=== PATIENT | female | born 1950 | race Caucasian/White ===

== ENCOUNTER 2021-08-16 15:47 | Emergency (ER) | payer OTHER ==
[2021-08-16] MEDS ORDERED: MORPHINE 4 MG/ML SYR ONE ×2 (15:56→16:01)
[2021-08-16] MEDS ORDERED: ONDANSETRON 4 MG/2 ML VIAL ONE (15:56)
[2021-08-16] MEDS ORDERED: FENTANYL CITR 100 MCG/2 ML ONE (16:29)
--- NOTE | 2021-08-16 17:10 | RAD REPORT ---
EXAM DESCRIPTION: RAD - Shoulder Right 2 View - 08/16/2021 4:43 pm CLINICAL HISTORY: Right shoulder pain FINDINGS: Hill-Sachs deformity. Anterior dislocation right humeral head
[2021-08-16] MEDS ORDERED: propofoL 200 MG/20 ML VIAL IV ONE (17:11)
--- NOTE | 2021-08-16 17:11 | RAD REPORT ---
EXAM DESCRIPTION: RAD - Wrist Right 3 View - 08/16/2021 4:43 pm CLINICAL HISTORY: Right wrist pain status post injury FINDINGS: No fracture or dislocation is seen. If the patient continues to have symptoms to suggest a n occult fracture then a followup plain film series in 7 days would be recommended.
--- NOTE | 2021-08-16 17:59 | RAD REPORT ---
EXAM DESCRIPTION: RAD - Shoulder Right 2 View - 08/16/2021 5:49 pm CLINICAL HISTORY: Right shoulder pain FINDINGS: Previously described dislocation has been reduced. Hill-Sachs deformity
--- NOTE | 2021-08-16 18:13 | ER ---
Nurse's Notes [facility] Name: Beatrice Morgan Age: 70 yrs Sex: Female : 1950 Arrival Date: 08/16/2021 Time: 15:48 Bed 3 Private MD: Diagnosis: Recurrent dislocation, right shoulder;Other specified sprain of right wrist Presentation: 08/16 15:50 Chief complaint: Patient states: Fell from standing 40 minutes ago. C/o severe R ss shoulder pain. Care prior to arrival: None. Mechanism of Injury: Fall from standing position. Trauma event details: Injury occurred in the [facility], Injury occurred: August 16, 2021. 15:50 Acuity: KAREEM 2 ss 15:50 Method Of Arrival: Wheelchair ss 16:04 Ebola Screen: Patient denies travel to an Ebola-affected area in the 21 days before ll1 illness onset. Initial Sepsis Screen: Does the patient meet any 2 criteria? No. Patient's initial sepsis screen is negative. Does the patient have a suspected source of infection? No. Patient's initial sepsis screen is negative. Risk Assessment: Do you want to hurt yourself or someone else? Patient reports no desire to harm self or others. Onset of symptoms was August 16, 2021. 16:05 Coronavirus screen: Client denies travel out of the [place] in the last 14 days. ss Trauma Activation: Not Applicable Physician: ED Physician; Name: ; Notified At: ; Arrived At: Physician: General Surgeon; Name: ; Notified At: ; Arrived At: Physician: Radiology; Name: ; Notified At: ; Arrived At: Physician: Respiratory; Name: ; Notified At: ; Arrived At: Physician: Lab; Name: ; Notified At: ; Arrived At: Historical: - Allergies: 16:05 No Known Allergies; ll1 - Immunization history:: Client reports receiving the 2nd dose of the Covid vaccine. - Immunization history: Last tetanus immunization: - up to date. - Social history:: Smoking status: Patient denies any tobacco usage or history of. Screenin:00 Abuse screen: Denies threats or abuse. Nutritional screening: No deficits noted. ll1 Tuberculosis screening: No symptoms or risk factors identified. Fall Risk Fall in past 12 months (25 points). IV access (20 points). Ambulatory Aid- Crutches/Cane/Walker (15 pts). Gait- Total Lopez Fall Scale indicates High Risk Score (45 or more points). Fall prevention measures have been instituted. Side Rails Up X 2 Placed Close to Nursing Station Frequent Obs/Assessments Occuring Family Present and informed to notify staff if the need to leave the bedside As available patient and family educated on Fall Prevention Program and Strategies. Primary Survey: 15:50 NO uncontrolled hemorrhage observed. A: The patient is alert. Airway: patent, No ss supplemental oxygen in use on arrival. Trachea midline. Breathing/Chest: Respiratory pattern: regular, Respiratory effort: spontaneous, unlabored, Breath sounds: clear, bilaterally. Chest inspection: symmetrical rise and fall of the chest. Circulation: Skin color: pink, Skin temperature: warm. Disability Alert. Exposure/Environment: There is no evidence of uncontrolled external bleeding. 18:47 Reassessment Breathing/Chest Respiratory pattern Regular Respiratory effort Spontaneous ll1 Unlabored Breath sounds Clear. Secondary Survey: 15:50 HEENT: Ears: clear Nose: clear Throat: No injury or deformity noted. is clear. ss Musculoskeletal: Circulation, motion, and sensation intact. Range of motion: limited in right shoulder Swelling absent. Assessment: 15:58 General: Appears distressed, uncomfortable, Behavior is cooperative, appropriate for ll1 age, restless. Pain: Complains of pain in R shoulder Aggravated by increased activity. Musculoskeletal: Circulation, motion, and sensation intact. Capillary refill < 3 seconds, Reports pain in R shoulder. Injury Description: s/p fall. r/o dislocation vs. FX. 16:17 Reassessment: No changes from previously documented assessment. Patient and/or family ll1 updated on plan of care and expected duration. Pain level reassessed. Patient is alert, oriented x 3, equal unlabored respirations, skin warm/dry/pink. 17:00 Reassessment: No changes from previously documented assessment. Patient and/or family ll1 updated on plan of care and expected duration. Pain level reassessed. Patient is alert, oriented x 3, equal unlabored respirations, skin warm/dry/pink. 18:00 Reassessment: No changes from previously documented assessment. Patient and/or family ll1 updated on plan of care and expected duration. Pain level reassessed. Patient is alert, oriented x 3, equal unlabored respirations, skin warm/dry/pink. Vital Signs: 16:03 BP 157 / 92; Pulse 69; Resp 26; Pulse Ox 99% ; Pain 10/10; ll1 16:06 Temp 97.0(TE); Weight 88.45 kg; Height 5 ft. 8 in. (172.72 cm); ss 16:16 BP 155 / 86; Pulse 65; Resp 18; Pulse Ox 98% on R/A; ll1 16:33 BP 122 / 103; Pulse 54; Resp 19; Pulse Ox 100% on R/A; ld1 17:36 BP 150 / 82; Pulse 47; Resp 16; Pulse Ox 100% ; ll1 18:08 BP 144 / 71; Pulse 50; Resp 15; Pulse Ox 97% on R/A; ll1 18:47 BP 131 / 61; Pulse 50; Resp 18; Pulse Ox 97% on R/A; ll1 16:06 Body Mass Index 29.65 (88.45 kg, 172.72 cm) ss [place] Coma Score: 15:50 Eye Response: spontaneous(4). Verbal Response: oriented(5). Motor Response: obeys ss commands(6). Total: 15. 16:04 Eye Response: spontaneous(4). Verbal Response: oriented(5). Motor Response: obeys ll1 commands(6). Total: 15. Trauma Score (Adult): 15:50 Eye Response: spontaneous(1); Verbal Response: oriented(1); Motor Response: obeys ss commands(2); Systolic BP: > 89 mm Hg(4); Respiratory Rate: 10 to 29 per min(4); [place] Score: 15; Trauma Score: 12 16:04 Eye Response: spontaneous(1); Verbal Response: oriented(1); Motor Response: obeys ll1 commands(2); Systolic BP: > 89 mm Hg(4); Respiratory Rate: 10 to 29 per min(4); Riky Score: 15; Trauma Score: 12 ED Course: 15:48 Patient arrived in ED. mr 15:52 Dl Morgan MD is Attending Physician. kdr 15:52 Vicky Sanchez RN is Primary Nurse. ll1 15:52 Arm band placed on Patient placed in an exam room, on a stretcher. ll1 15:57 Patient has correct armband on for positive identification. Placed in gown. Bed in low mh5 position. Call light in reach. Side rails up X 1. Warm blanket given. Pulse ox on. NIBP on. 15:58 Inserted saline lock: 22 gauge in left antecubital area, using aseptic technique. Blood ll1 collected. 16:03 Triage completed. ss 16:43 Shoulder Right (2 View) XRAY In Process Unspecified. EDMS 16:44 Wrist Right 3 View XRAY In Process Unspecified. EDMS 17:49 Shoulder Right (2 View) XRAY In Process Unspecified. EDMS 18:09 Oxygen administration via nasal cannula \T\ 2L/min. ll1 18:09 Thermoregulation: warm blanket given to patient. ll1 18:12 Lawrence Apodaca MD is Referral Physician. kdr 18:47 No provider procedures requiring assistance completed. IV discontinued, intact, ll1 bleeding controlled, No redness/swelling at site. Pressure dressing applied. Administered Medications: 16:02 Drug: Zofran (Ondansetron) 4 mg Route: IVP; Site: left antecubital; ll1 16:05 Follow up: Response: No adverse reaction ld1 16:07 Follow up: Response: No adverse reaction ll1 16:03 Drug: morphine 4 mg Route: IVP; Site: left antecubital; ll1 16:05 Follow up: Response: No adverse reaction ld1 16:08 Follow up: Response: No adverse reaction ll1 16:05 Not Given (Duplicate Order): morphine 4 mg IVP once; RASS on ADMIN: Combtv4, Very ld1 Agttd3, Agttd2, Rstlss1, AlertClm0, Drwsy-1, Lt Sdtn-2, Mod Sdtn-3, Dp Sdtn-4, UnArsble-5 16:05 Not Given (Duplicate Order): Zofran (Ondansetron) 4 mg IVP once; over 2 minutes ld1 16:05 Drug: morphine 2 mg {Note: rass 1 .} Route: IVP; Site: left antecubital; ll1 16:15 Drug: morphine 4 mg {Note: rass 1.} Route: IVP; Site: left antecubital; ll1 16:16 Follow up: Response: No adverse reaction ll1 18:44 Follow up: Response: No adverse reaction ll1 16:33 Drug: fentaNYL (PF) 25 mcg Route: IVP; Site: left antecubital; ld1 17:37 Follow up: Response: No adverse reaction ll1 17:15 Drug: Propofol 90 mg Route: IVP; Site: left antecubital; ll1 17:38 Follow up: Response: No adverse reaction ll1 18:28 Drug: fentaNYL (PF) 25 mcg {Note: rass 0.} Route: IVP; Site: left antecubital; ll1 18:44 Follow up: Response: No adverse reaction ll1 Intake: 18:47 PO: 0ml; Total: 0ml. ll1 Output: 18:47 Urine: 0ml; Total: 0ml. 1 Outcome: 18:12 Discharge ordered by . kdr 18:47 Discharged to home via wheelchair. ll1 18:47 Condition: stable 18:47 Discharge instructions given to patient, family, Instructed on discharge instructions, follow up and referral plans. medication usage, Demonstrated understanding of instructions, follow-up care, medications, Prescriptions given X 1. 18:47 Patient's length of stay was not longer than 2 hours. ll1 18:48 Patient left the ED. 1 Signatures: Dispatcher [employer] EDMS Dl Morgan MD MD kdr Rivera, Mary mr Smirch, Shelby, RN RN ss Martinez, Maria [facility] Vicky Sanchez RN RN ll1 Alexia Dover RN RN ld1
--- NOTE | 2021-08-16 18:14 | EDPHYS ---
Physician Documentation [facility] Name: Beatrice Morgan Age: 70 yrs Sex: Female : 1950 Arrival Date: 08/16/2021 Time: 15:48 Bed 3 Private MD: ED Physician Dl Morgan HPI: 08/16 16:04 This 70 yrs old Female presents to ER via Wheelchair with complaints of Fall Injury, kdr Shoulder Injury. 16:04 Details of fall: The patient fell from an upright position, while walking. Onset: The kdr symptoms/episode began/occurred suddenly, just prior to arrival. Associated injuries: The patient sustained Right shoulder. Severity of symptoms: At their worst the symptoms were mild, moderate, just prior to arrival, in the emergency department the symptoms are unchanged. The patient has not experienced similar symptoms in the past. The patient has not recently seen a physician. Patient states she was walking and tripped falling on her right shoulder. Historical: - Allergies: 16:05 No Known Allergies; ll1 - Immunization history:: Client reports receiving the 2nd dose of the Covid vaccine. - Immunization history: Last tetanus immunization: - up to date. - Social history:: Smoking status: Patient denies any tobacco usage or history of. ROS: 16:04 Constitutional: Negative for fever, chills, and weight loss, Eyes: Negative for injury, kdr pain, redness, and discharge, Neck: Negative for injury, pain, and swelling, Cardiovascular: Negative for chest pain, palpitations, and edema, Respiratory: Negative for shortness of breath, cough, wheezing, and pleuritic chest pain, Abdomen/GI: Negative for abdominal pain, nausea, vomiting, diarrhea, and constipation, Back: Negative for injury and pain, : Negative for injury, bleeding, discharge, and swelling, Skin: Negative for injury, rash, and discoloration, Neuro: Negative for headache, weakness, numbness, tingling, and seizure activity. Psych: Negative for depression, anxiety, suicide ideation, homicidal ideation, and hallucinations, Allergy/Immunology: Negative for hives, rash, and allergies, Endocrine: Negative for neck swelling, polydipsia, polyuria, polyphagia, and marked weight changes, Hematologic/Lymphatic: Negative for swollen nodes, abnormal bleeding, and unusual bruising. 16:04 MS/extremity: Positive for injury or acute deformity, decreased range of motion, of the anterior aspect of right shoulder and right axilla. Exam: 16:04 Constitutional: This is a well developed, well nourished patient who is awake, alert, kdr and in no acute distress. Head/Face: Normocephalic, atraumatic. Eyes: Pupils equal round and reactive to light, extra-ocular motions intact. Lids and lashes normal. Conjunctiva and sclera are non-icteric and not injected. Cornea within normal limits. Periorbital areas with no swelling, redness, or edema. Neck: Trachea midline, no thyromegaly or masses palpated, and no cervical lymphadenopathy. Supple, full range of motion without nuchal rigidity, or vertebral point tenderness. No Meningismus. Chest/axilla: Normal chest wall appearance and motion. Nontender with no deformity. No lesions are appreciated. Cardiovascular: Regular rate and rhythm with a normal S1 and S2. No gallops, murmurs, or rubs. Normal PMI, no JVD. No pulse deficits. Respiratory: Lungs have equal breath sounds bilaterally, clear to auscultation and percussion. No rales, rhonchi or wheezes noted. No increased work of breathing, no retractions or nasal flaring. Abdomen/GI: Soft, non-tender, with normal bowel sounds. No distension or tympany. No guarding or rebound. No evidence of tenderness throughout. Back: No spinal tenderness. No costovertebral tenderness. Full range of motion. Skin: Warm, dry with normal turgor. Normal color with no rashes, no lesions, and no evidence of cellulitis. Neuro: Awake and alert, GCS 15, oriented to person, place, time, and situation. Cranial nerves II-XII grossly intact. Motor strength 5/5 in all extremities. Sensory grossly intact. Cerebellar exam normal. Normal gait. Psych: Awake, alert, with orientation to person, place and time. Behavior, mood, and affect are within normal limits. 16:04 Musculoskeletal/extremity: Extremities: grossly normal except: noted in the anterior aspect of right shoulder and posterior aspect of right shoulder: decreased ROM, pain, tenderness, Anterior fullness to right shoulder. Vital Signs: 16:03 BP 157 / 92; Pulse 69; Resp 26; Pulse Ox 99% ; Pain 10/10; ll1 16:06 Temp 97.0(TE); Weight 88.45 kg; Height 5 ft. 8 in. (172.72 cm); ss 16:16 BP 155 / 86; Pulse 65; Resp 18; Pulse Ox 98% on R/A; ll1 16:33 BP 122 / 103; Pulse 54; Resp 19; Pulse Ox 100% on R/A; ld1 17:36 BP 150 / 82; Pulse 47; Resp 16; Pulse Ox 100% ; ll1 18:08 BP 144 / 71; Pulse 50; Resp 15; Pulse Ox 97% on R/A; ll1 18:47 BP 131 / 61; Pulse 50; Resp 18; Pulse Ox 97% on R/A; ll1 16:06 Body Mass Index 29.65 (88.45 kg, 172.72 cm) ss [place] Coma Score: 15:50 Eye Response: spontaneous(4). Verbal Response: oriented(5). Motor Response: obeys ss commands(6). Total: 15. 16:04 Eye Response: spontaneous(4). Verbal Response: oriented(5). Motor Response: obeys ll1 commands(6). Total: 15. Trauma Score (Adult): 15:50 Eye Response: spontaneous(1); Verbal Response: oriented(1); Motor Response: obeys ss commands(2); Systolic BP: > 89 mm Hg(4); Respiratory Rate: 10 to 29 per min(4); Riky Score: 15; Trauma Score: 12 16:04 Eye Response: spontaneous(1); Verbal Response: oriented(1); Motor Response: obeys ll1 commands(2); Systolic BP: > 89 mm Hg(4); Respiratory Rate: 10 to 29 per min(4); Riky Score: 15; Trauma Score: 12 Procedures: 18:14 Reduction: of the right shoulder, using traction, manipulation, Rotation, Immobilized kdr with wrist splint, Patient tolerated well. Post reduction film - Hill-Sachs deformity. MDM: 16:04 Data reviewed: vital signs, nurses notes, lab test result(s), radiologic studies. kdr Counseling: I had a detailed discussion with the patient and/or guardian regarding: the historical points, exam findings, and any diagnostic results supporting the discharge/admit diagnosis, lab results, radiology results. 18:12 Patient medically screened. kdr 18:14 ED course: The patient was much improved with the interventions given. She was happy kdr with the care provided and the plan for discharge and follow-up. 08/16 15:53 Order name: Shoulder Right (2 View) XRAY; Complete Time: 18:07 kdr 08/16 16:31 Order name: Wrist Right 3 View XRAY; Complete Time: 18:07 kdr 08/16 17:28 Order name: Shoulder Right (2 View) XRAY; Complete Time: 18:07 kdr Administered Medications: 16:02 Drug: Zofran (Ondansetron) 4 mg Route: IVP; Site: left antecubital; ll1 16:05 Follow up: Response: No adverse reaction ld1 16:07 Follow up: Response: No adverse reaction ll1 16:03 Drug: morphine 4 mg Route: IVP; Site: left antecubital; ll1 16:05 Follow up: Response: No adverse reaction ld1 16:08 Follow up: Response: No adverse reaction ll1 16:05 Not Given (Duplicate Order): morphine 4 mg IVP once; RASS on ADMIN: Combtv4, Very ld1 Agttd3, Agttd2, Rstlss1, AlertClm0, Drwsy-1, Lt Sdtn-2, Mod Sdtn-3, Dp Sdtn-4, UnArsble-5 16:05 Not Given (Duplicate Order): Zofran (Ondansetron) 4 mg IVP once; over 2 minutes ld1 16:05 Drug: morphine 2 mg {Note: rass 1 .} Route: IVP; Site: left antecubital; ll1 16:15 Drug: morphine 4 mg {Note: rass 1.} Route: IVP; Site: left antecubital; ll1 16:16 Follow up: Response: No adverse reaction ll1 18:44 Follow up: Response: No adverse reaction ll1 16:33 Drug: fentaNYL (PF) 25 mcg Route: IVP; Site: left antecubital; ld1 17:37 Follow up: Response: No adverse reaction ll1 17:15 Drug: Propofol 90 mg Route: IVP; Site: left antecubital; ll1 17:38 Follow up: Response: No adverse reaction ll1 18:28 Drug: fentaNYL (PF) 25 mcg {Note: rass 0.} Route: IVP; Site: left antecubital; ll1 18:44 Follow up: Response: No adverse reaction ll1 Disposition Summary: 08/16/21 18:12 Discharge Ordered Location: Home kdr Problem: new kdr Symptoms: have improved kdr Condition: Stable kdr Diagnosis - Recurrent dislocation, right shoulder kdr - Other specified sprain of right wrist kdr Followup: kdr - With: Lawrence Apodaca MD - When: 5 - 6 days - Reason: If symptoms return, Further diagnostic work-up, Recheck today's complaints, Continuance of care, Re-evaluation by your physician Discharge Instructions: - Discharge Summary Sheet kdr - Wrist Pain, Adult, [id number] kdr - Shoulder Dislocation, [id number] kdr - Wrist Sprain, Adult kdr Forms: - Medication Reconciliation Form kdr - Thank You Letter kdr - Prescription Opioid Use kdr Prescriptions: - Tramadol 50 mg Oral Tablet - take 1 tablet by ORAL route every 8 hours as needed; 18 tablet; Refills: 0, kdr Product Selection Permitted Signatures: Dispatcher [employer] Dl Kingsley MD MD kdr Vicky Sanchez, RN RN ll1 Alexia Dover RN RN ld1
[2021-08-16 19:22] VITALS: TEMP 97
[2021-08-16 19:29] VITALS: O2SAT 97
[2021-08-16 19:30] VITALS: BP 131/61
== END 2021-08-16 18:48 | disposition home or self-care (01) ==
LOC: ER 15:47
PROC: 0RSJXZZ Reposition Right Shoulder Joint, External Approach (ICD-10-PCS; principal; 2021-08-16)
DX: M24.411 Recurrent dislocation, right shoulder (principal); S63.591A Other specified sprain of right wrist, initial encounter; W01.0XXA Fall on same level from slipping, tripping and stumbling without subsequent striking against object, initial encounter; Y93.01 Activity, walking, marching and hiking
CPT/HCPCS: 73030 ×2; 73110; 96375; 96374; 99285; 23650; J2704; J3010; J2405